=== PATIENT | male | born 1965 | race Caucasian/White ===

== ENCOUNTER 2021-12-22 11:39 | Emergency (ER) | payer OTHER, BC ==
[2021-12-22] MEDS ORDERED: Lidocaine 2% 5 ML SDV INJECT ONE (12:15)
[2021-12-22] MEDS ORDERED: Diphtheria,Pertussis(Acell),Tetanus Vaccine 0.5 ML Syringe IM ONE (12:16)
== END 2021-12-22 13:00 | disposition home or self-care (01) ==
LOC: LL.ED 11:39
DX: S61.210A Laceration without foreign body of right index finger without damage to nail, initial encounter (principal); Z23 Encounter for immunization; W26.8XXA Contact with other sharp object(s), not elsewhere classified, initial encounter; Y99.0 Civilian activity done for income or pay
CPT/HCPCS: 12001; 90471; 90715; 99282-25; 99283

== ENCOUNTER 2024-07-06 11:50 | Emergency (ER) | payer BC, MEDICAID ==
[2024-07-06 12:12] LABS: BASOPHILS ABSOLUTE AUTO 0.02 K/uL (0.00-0.20); BASOPHILS PERCENT AUTO 0.2 % (0.0-2.0); EOSINOPHILS ABSOLUTE AUTO 0.03 K/uL (0.00-0.50); EOSINOPHILS PERCENT AUTO 0.4 % (0.0-5.0); HEMATOCRIT 42.7 % (39.0-49.0); HEMOGLOBIN 14.9 g/dL (13.1-16.8); IMMATURE GRAN ABSOLUTE AUTO 0.01 10^3/uL (0.00-0.04); IMMATURE GRAN PERCENT AUTO 0.1 % (0.0-0.4); LYMPHOCYTES ABSOLUTE AUTO 2.03 K/uL (0.50-3.50); LYMPHOCYTES PERCENT AUTO 25.3 % (10.0-50.0); MEAN CORPUSCULAR HEMOGLOBIN 31.8 pg (28.2-33.3); MEAN CORPUSCULAR HGB CONC 34.9 g/dL (31.7-36.0); MEAN CORPUSCULAR VOLUME 91.2 fL (84.0-98.0); MONOCYTES ABSOLUTE AUTO 0.64 K/uL (0.00-1.00); NEUTROPHILS ABSOLUTE AUTO 5.29 K/uL (1.40-7.00); PLATELET COUNT,PLT 180 K/uL (150-350); RED BLOOD CELL COUNT 4.68 M/uL (4.33-5.41); RED CELL DISTRIBUTION WIDTH 12.1 % (11.2-14.1)
[2024-07-06 12:44] LABS: ALANINE AMINOTRANSFERASE,ALT 59 U/L (12-78); ALBUMIN 4.5 g/dL (3.4-5.0); ALKALINE PHOSPHATASE 67 IU/L (46-116); ANION GAP 18.1 meq/L (7-15); ASPARTATE AMNIOTRANSFERASE,AST 32 U/L (15-37); BILIRUBIN TOTAL 0.6 mg/dL (0.2-1.0); BLOOD UREA NITROGEN,BUN 12 mg/dL (7-18); CALCIUM 9.4 mg/dL (8.5-10.1); CARBON DIOXIDE,CO2 26.2 mmol/L (21.0-32.0); CHLORIDE,CL 95 mmol/L (98-107); ESTIMATED GFR 86 mL/min (>=60); ETHANOL BLOOD MEDICAL 0.002 g/dL (0.000-0.080); GLUCOSE RANDOM 112 mg/dL (70-99); MAGNESIUM 1.8 mg/dL (1.8-2.4); POTASSIUM,K 4.3 mmol/L (3.5-5.1); PRO B-TYPE NATRIUR PEPT,BNPPRO 136 pg/mL (0-125); PROTEIN TOTAL,TP 7.7 g/dL (6.4-8.2); SODIUM,NA 135 mmol/L (136-145)
[2024-07-06] MEDS: Labetalol 20 MG/4 ML Syringe IVPUSH ONE ×3 (12:49→15:45)
[2024-07-06] MEDS: LORazepam 1 MG Tab PO ONE (12:49)
[2024-07-06] MEDS: Sodium Chloride 0.9% 1,000 ML IV ONE (12:55)
[2024-07-06] MEDS: Iopamidol 755 Mg/ML 100 ML Bottle IVPUSH STA (13:35)
[2024-07-06] MEDS: Metoprolol Tartrate 25 MG Tab PO ONE (14:39)
[2024-07-06 15:05] LABS: APPEARANCE,URINE CLEAR; BILIRUBIN,URINE NEGATIVE (NEGATIVE); COLOR,URINE YELLOW; GLUCOSE,URINE NEGATIVE (NEGATIVE); KETONES,URINE TRACE mg/dL (NEGATIVE); LEUKOCYTE ESTERASE,URINE NEGATIVE (NEGATIVE); NITRITE,URINE NEGATIVE (NEGATIVE); OCCULT BLOOD,URINE NEGATIVE (NEGATIVE); PROTEIN,URINE NEGATIVE (NEGATIVE); UROBILINOGEN,URINE 0.2 E.U./dL (0.2-1.0)
[2024-07-06] MEDS: Diazepam 5 MG Tab PO ONE (15:14)
[2024-07-06] MEDS: Thiamine 100 MG Tab PO ONE (15:39)
[2024-07-06] MEDS: Sodium Chloride 0.9% 10 ML Syringe FLUSH PRN (15:52)
== END 2024-07-06 17:18 | disposition home or self-care (01) ==
LOC: LL.ED 11:50
DX: I16.0 Hypertensive urgency (principal); I10 Essential (primary) hypertension; E78.00 Pure hypercholesterolemia, unspecified; J44.9 Chronic obstructive pulmonary disease, unspecified; Z79.899 Other long term (current) drug therapy; Z79.84 Long term (current) use of oral hypoglycemic drugs
CPT/HCPCS: 36415; 71045; 71275; 80053; 80307; 81003; 83605; 83735; 83880; 84484; 85025; 85379; 87428; 93005; 93010; 96361; 96374; 96376; 99284; A9270; J1920; J7030; Q9967